=== PATIENT | female | born 1990 | race Asian ===

== ENCOUNTER 2018-12-20 20:29 | Inpatient (IN) | payer OTHER ==
[~2018-12-20] VITALS: Ht 165.1 cm; Wt 80.9 kg
[2018-12-20] VITALS (9 sets, daily range): BP systolic 119–174; BP diastolic 69–92; PULSE 70–96; TEMP 99
--- NOTE | 2018-12-20 21:15 | NUR ---
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
[2018-12-20 22:07] LABS: BASO % 0.2 % (0.0-2.0); EOS # 0.2 (0.0-0.7); EOS % 1.6 % (0-4.0); GRAN # 8.2 (1.4-6.5); GRAN % 65.8 % (42.2-75.2); HEMATOCRIT 41.2 % (37.0-47.0); HEMOGLOBIN 12.8 g/dl (12.5-16.0); LYMPH # 3.1 (1.2-3.4); LYMPH % 24.8 % (20.0-51.0); MEAN CELL VOLUME 75 fl (80.0-100.0); MEAN CORPUSCULAR HEMOGLOBIN 23 pg (27.0-31.0); MEAN CORPUSCULAR HGB CONC 31 g/dl (33.0-37.0); MONO # 0.9 (0.1-0.6); MONO % 7.1 % (1.7-9.3); PLATELET COUNT 327 K/mm3 (130-400); RED BLOOD COUNT 5.48 M/mm3 (4.10-5.30)
[2018-12-20] MEDS ORDERED: PRENATA1 CTB PO (22:16)
[2018-12-20 22:18] LABS: ALBUMIN 3.7 gm/dL (3.5-5.0); BILIRUBIN,TOTAL 0.2 mg/dL (0.0-1.0); CALCIUM 9.7 mg/dL (8.4-10.2); CREATININE, serum 0.44 (0.52-1.25); POTASSIUM 4.7 mmol/L (3.4-5.0); TOTAL PROTEIN 7.7 gm/dL (6.4-8.2)
[2018-12-21] VITALS (34 sets, daily range): BP systolic 105–163; BP diastolic 63–90; PULSE 69–118; TEMP 98.1–99
--- NOTE | 2018-12-21 02:00 | NUR ---
Pushing with minimal descent. Pt encouraged to rest will delay pushing and start Pitocin.
--- NOTE | 2018-12-21 03:25 | NUR ---
Dr Alejo at L&D des, updated on pt's lack of descent with pushing and interventions attempted.
--- NOTE | 2018-12-21 04:10 | NUR ---
Dr Alejo into room, assesses pushing. [address] Alejo. 0418 Dr Alejo calls C/S 0421 FHT's with deceleration to 130's. 0425 FHT's with decel to 90's, backs to 110's in 70 seconds, 0427 To C/S room per bed.
[2018-12-22 07:58] VITALS: BP 114/68; PULSE 76; TEMP 97.8
--- NOTE | 2018-12-22 08:53 | NUR ---
PATIENT WALK TO BATHROOM TO SHOWER. TOLERATES WELL WITH ALOT OF HELP. DRESSING OFF. INC CDI
[2018-12-22 15:54] VITALS: BP 116/78; PULSE 88; TEMP 98.1
[2018-12-22 20:05] VITALS: BP 100/55; PULSE 101; TEMP 97.8
[2018-12-23 06:45] VITALS: BP 121/84; PULSE 83; TEMP 97.7
--- NOTE | 2018-12-23 09:22 | NUR ---
Initial visit; Parents thanked for offering congratulations for the of their son. thanked family for choosing [facility].
[2018-12-23 13:00] VITALS: BP 101/62; PULSE 89; TEMP 98.9
--- NOTE | 2018-12-23 15:58 | NUR ---
Rests in bed, alert. Request pain medication. Percocet 5\325 mg two given per request and as ordered.
[2018-12-23 16:30] VITALS: BP 121/76; PULSE 98; TEMP 97.4
[2018-12-23 20:19] VITALS: BP 105/68; PULSE 100; TEMP 97.8
[2018-12-24 04:00] VITALS: BP 112/78; PULSE 88; TEMP 98.7
[2018-12-24 08:00] VITALS: BP 105/68; PULSE 92; TEMP 98.1
[2018-12-24] MEDS ORDERED: IBU600 MG PO (09:53)
[2018-12-24] MEDS ORDERED: PERCOCET 325 MG1 TA2 PO (09:53)
== END 2018-12-24 11:39 | disposition home or self-care (01) | DRG 788 ==
LOC: LDRO 20:29 → OB 21:10 → LDR 21:10 → OB 12-21 06:43 → LDRO 12-24 16:02
PROVIDERS: ADMIT Obstetrics & Gynecology
PROC: 10D00Z1 Extraction of Products of Conception, Low, Open Approach (ICD-10-PCS; principal; 2018-12-21)
DX: O62.1 Secondary uterine inertia (principal); Z3A.39 39 weeks gestation of pregnancy; Z37.0 Single live birth
CPT/HCPCS: J0690; J1885; J2175; J2370; J2400; J2405; J2590; J2795; J3010; J7120